=== PATIENT | female | born 1965 | race African-American/Black ===

== ENCOUNTER 2016-07-07 06:43 | Day surgery (SDC) | payer SELFPAY ==
[2016-07-03 13:21] VITALS: BMI 37.8
[2016-07-07] MEDS ORDERED: HEPARIN NA (PORCINE) 5,000 UNITS/ML 1ML VIAL ONE (07:09)
[2016-07-07] MEDS ORDERED: LIDOCAINE HCL 1%, 10 MG/ML (20ML VIAL) ONE (07:34)
[2016-07-07] MEDS ORDERED: EPINEPHrine/PF 1 MG/1 ML (1:1,000) AMPULE ONE (07:35)
[2016-07-07] MEDS ORDERED: BACITRACIN 30 GM TUBE TOPICAL OINTMENT ONE (07:36)
[2016-07-07] MEDS ORDERED: MIDAZOLAM HCL 2 MG/2 ML SINGLE DOSE VIAL ONE (07:37)
[2016-07-07] MEDS ORDERED: ONDANSETRON 4 MG/2 ML VIAL ONE (07:37)
[2016-07-07] MEDS ORDERED: DEXAMETHASONE SOD PHOSPHATE 4 MG/1 ML VIAL ONE ×2 (07:37→11:58)
[2016-07-07] MEDS ORDERED: PROPOFOL 20 ML ONE ×3 (07:38→13:33)
[2016-07-07] MEDS ORDERED: LIDOCAINE HCL/PF 2% SDV 5ML VIAL ONE (07:38)
[2016-07-07] MEDS ORDERED: ceFAZolin SODIUM 1 GM VIAL ONE ×2 (07:39→08:21)
[2016-07-07] MEDS ORDERED: ROCURONIUM BROMIDE 50 MG/5 ML VIAL ONE ×3 (07:39→12:27)
[2016-07-07] MEDS ORDERED: SODIUM CHLORIDE 0.9% P/F 10 ML VIAL IJ ONE (07:39)
[2016-07-07] MEDS ORDERED: ESMOLOL HCL 10 ML ONE (08:37)
[2016-07-07] MEDS ORDERED: LABETALOL HCL 5 MG/1 ML (100MG/20 ML VIAL) ONE (08:47)
[2016-07-07] MEDS ORDERED: ONDANSETRON 4 MG/2 ML VIAL IVPUSH PRN (12:05)
[2016-07-07] MEDS ORDERED: NEOSTIGMINE METHYLSULFATE 0.5 MG/ML - 10 ML MDV ONE (13:44)
[2016-07-07] MEDS ORDERED: GLYCOPYRROLATE 0.2 MG/1 ML VIAL ONE (13:44)
[2016-07-07] MEDS ORDERED: LACTATED RINGERS SOLUTION 1,000 ML IV SCH (14:15)
[2016-07-07] MEDS ORDERED: oxyCODONE HCL 5 MG TABLET PO PRN (14:15)
[2016-07-07] MEDS ORDERED: ONDANSETRON 4 MG/2 ML VIAL IVPB PRN (14:15)
[2016-07-07] MEDS: morphine CARPU-JECT 4 MG/1 ML DISP.SYRIN IVPUSH PRN ×3 (17:31→23:40)
[2016-07-07] MEDS ORDERED: morphine CARPU-JECT 2 MG/1 ML DISP.SYRIN IVPUSH STA (18:34)
[2016-07-08] MEDS: morphine CARPU-JECT 4 MG/1 ML DISP.SYRIN IVPUSH PRN (03:23)
[2016-07-08 06:04] VITALS: BP 128/75; PULSE 92; TEMP 98.1
[2016-07-08] MEDS ORDERED: LEVOTHYROXINE NA 125 MCG TABLET (FP) PO SCH (07:00)
[2016-07-08] MEDS ORDERED: HEPARIN NA (PORCINE) 5,000 UNITS/ML 1ML VIAL SQ SCH ×2 (07:00)
--- NOTE | 2016-07-08 09:51 | PN ---
Progress Note (short form) - Note Progress Note: POD 1 post abdominoplasty with liposuction. Pain controled with PO, ambulating , NATASHA's thin and functioning, VSS AF. Exam soft and appropriate. No collections. OK for discharge when ready.
--- NOTE | 2016-07-08 23:30 | OP ---
DATE OF OPERATION: 07/07/2016 TITLE OF PROCEDURE: Abdominoplasty with bilateral flank liposuction. PREOPERATIVE DIAGNOSIS: Cosmetic deformity of abdomen. POSTOPERATIVE DIAGNOSIS: Same. ATTENDING SURGEON: Sharif Angulo MD AIRPORT LOCATION MANAGER: None. ANESTHESIA: General endotracheal anesthesia. DESCRIPTION OF PROCEDURE: The patient was marked in the holding area, awake and aware of incisions and resulting scars. She was counseled on risks, benefits, and alternatives to the operation, understands and agrees to proceed. The patient is given 5,000 units of subcutaneous heparin preoperatively in the holding area. She is given CHRISTOPHER hose and SCDs in the holding area, brought to the operating room, placed in the supine position. All pressure points are carefully padded. Position is checked by surgical and anesthesia teams. The patient is given 2 g of IV Ancef preoperatively. She is prepped and draped in standard surgical fashion. Timeout was called. Patient, procedure, site and side was verified. An incision was made along the inferior border of the resection pattern in the infrapannicular crease. Dissection carried down to the level of the abdominal wall fascia. Dissection was then carried along the abdominal wall fascia to the level of the umbilicus. The umbilicus was then circumcised and developed down to the fascia on a fiber fatty stalk. It was from the abdominoplasty flap, and dissection of the abdominoplasty flap is performed to the level of xiphoid process in the midline and costal margins bilaterally. Hemostasis was meticulously achieved in the midline. Plication was then performed, first with a series of interrupted buried [id number] 1 Prolene sutures followed by running locking 1 Prolene suture. A line of each of these was performed both superior and inferior to the umbilicus. The umbilicus was given wide berth and is clearly well perfused. The abdominoplasty flap was then trimmed of its sub-Coty's fat uniformly. Hemostasis was meticulously achieved once again. Copious irrigation was performed. The patient was brought to a seated upright position at 30 degrees where the flap is transposed. Excess skin and fat is excised. The skin is then tailor tacked and a Star Trek pattern defect is made for the translocation of the umbilicus. A notch was removed from the 6 o'clock position of the umbilicus to accommodate the inferiorly based Star Trek flap of the inset defect. The umbilicus was brought through the defect. It was secured with a series of interrupted buried deep dermal 3-0 Monocryl suture followed by a combination of running and interrupted 5-0 nylon suture. Size 10 flat NATASHA drains are brought out through the lateral extents of the incisions. A central superior drain was brought out through a separate stab wound on the right side on each of the lateral extents of the incisions. Separate drain was brought out, which was laying in that side of the inferior portion of the wound. Drains were secured with 2-0 silk drain suture. At this point, the flanks were tumesced with wetting solution. A total of 1500 mL of wetting solution is infiltrated. The wetting solution is 1 L of normal saline with 20 mL of 1% lidocaine plain and an ampule of epinephrine. A full 25 minutes awaited for hemostatic effect of the wetting solution. While this was being done, the abdominoplasty flap was being closed with a series of interrupted buried superficial fascial, sub Coty's layer 2-0 Vicryl suture, followed by a running locking 3-0 Vicryl deep dermal layer. Liposuction was then performed with 5-mm cannula using a power-assisted technique. A total of 700 mL of lipoaspirate was yielded from the right flank and 550 mL of lipoaspirate was yielded from the left flank. Endpoint is smooth even contour. The final closure is performed of the skin with a running 3-0 Monocryl subcuticular suture, followed by several interrupted 5-0 nylon sutures along the incision. The incision is dressed with Steri-Strips. Bacitracin and Xeroform were placed at the umbilicus. The abdominal binder was applied with ABD gauze. The patient awoken from anesthesia in a flexed position, , transferred to her hospital bed in a flexed position. SHARIF ANGULO M.D. [id number]
--- NOTE | 2016-07-10 09:03 | PATH ---
Surgical Pathology Report Patient Name: STACY MORENO [facility]. Rec. #: [id number] /Age/Gender: 1965 (Age: 51) / F Account: [id number] Location: [facility] AMBULATORY Taken: 07/07/2016 Received: 07/07/2016 Reported: 07/10/2016 Physicians: Sharif Rodriguez Specimen(s) Received A: ABDOMINAL TISSUE AND SKIN RIGHT B: ABDOMINAL TISSUE AND SKIN LEFT Clinical History Cosmetic Final Diagnosis A. SKIN AND SUBCUTANEOUS TISSUE, RIGHT ABDOMEN, ABDOMINOPLASTY: UNREMARKABLE SKIN AND SUBCUTANEOUS ADIPOSE TISSUE (GROSS ONLY). B. SKIN AND SUBCUTANEOUS TISSUE, LEFT ABDOMEN, ABDOMINOPLASTY: UNREMARKABLE SKIN AND SUBCUTANEOUS ADIPOSE TISSUE (GROSS ONLY). Electronically Signed Jourdan Ulloa M.D. Gross Description A. Received in formalin labeled "right abdominal tissue and skin," is a 2056 g aggregate of 2 walker brown, irregular, unoriented portions of skin with underlying soft tissue measuring 21.5 x 5.0 x 3.0 cm and 32.0 x 18.5 x 7.0 cm. The epidermal surfaces are unremarkable. Sectioning reveals unremarkable yellow, lobulated adipose tissue. No lesions are identified. No sections are submitted, gross only. B. Received in formalin labeled "left abdominal tissue and skin 1902 g," are 2 walker-brown, irregular, unoriented portions of skin with underlying soft tissue measuring 11.0 x 1.8 x 1.5 cm and 29.0 x 20.0 x 7.0 cm. The epidermal surfaces are unremarkable. Sectioning reveals unremarkable yellow, lobulated adipose tissue. No lesions are identified. No sections are submitted, gross only. 07/09/201607/09/2016
== END 2016-07-08 12:08 | disposition home or self-care (01) ==
LOC: FASU 06:43 → FM/S 15:53 → FASU 07-08 12:08
PROVIDERS: ATTEND Plastic Surgery
PROC: 0J083ZZ Alteration of Abdomen Subcutaneous Tissue and Fascia, Percutaneous Approach (ICD-10-PCS; 2016-07-07)
PROC: 0J080ZZ Alteration of Abdomen Subcutaneous Tissue and Fascia, Open Approach (ICD-10-PCS; principal; 2016-07-07 08:51)
DX: Z41.1 Encounter for cosmetic surgery (principal); M95.8 Other specified acquired deformities of musculoskeletal system
CPT/HCPCS: 84703; 88300-TC; 94010; 94760; J1644

== ENCOUNTER 2017-04-13 07:08 | Day surgery (SDC) | payer OTHER ==
[2017-04-10 13:42] VITALS: BMI 34.3
[2017-04-13 07:46] LABS: EOS % 1.4 % (0-4.5); HEMOGLOBIN 13.8 GM/dL (10.7-15.3); LYMPH % 25.5 % (8-40); MCH 28.3 pg (25.7-33.7); MEAN CELL VOLUME 88.4 fl (80-96); MEAN PLT VOLUME 8.2 fl (7.5-11.1); MONO % 8.3 % (3.8-10.2); NEUT % 63.8 % (42.8-82.8); PLATELET COUNT 290 K/MM3 (134-434); RBC 4.87 M/mm3 (3.60-5.2); RDW 14.9 % (11.6-15.6); WHITE BLOOD COUNT 12.5 K/mm3 (4.0-10.0)
[2017-04-13 07:59] LABS: INR 1.06 (0.82-1.09)
[2017-04-13 08:04] VITALS: TEMP 98.1
[2017-04-13 13:01] VITALS: BP 127/88; PULSE 88
--- NOTE | 2017-04-15 16:15 | PATH ---
Cytology Non-Gynecological Report Patient Name: STACY MORENO [facility]. Rec. #: [id number] /Age/Gender: 1965 (Age: 52) / F Account: [id number] Location: RADIOLOGY Taken: 04/13/2017 Received: 04/13/2017 Reported: 04/15/2017 Physicians: Yo Ruby Specimen(s) Received ABDOMINAL FLUID LEFT LATERAL Clinical History Abscess Final Diagnosis ABDOMEN, LEFT LATERAL, ABSCESS, FOR CYTOLOGY: SATISFACTORY FOR EVALUATION. NO MALIGNANT CELLS IDENTIFIED. SCATTERED INFLAMMATORY CELLS COMPRISED OF MACROPHAGES, NEUTROPHILS AND LYMPHOCYTES IN A BACKGROUND OF CELLULAR DEBRIS. Comment: See concurrent cytology (C18-7). Electronically Signed Yas Whitlock M.D. Gross Description Approximately 50 cc of dark fluid received fixed in 50% alcohol. Two cytofunnels and one cellblock prepared.
--- NOTE | 2017-04-15 16:18 | PATH ---
Cytology Non-Gynecological Report Patient Name: STACY MORENO [facility]. Rec. #: [id number] /Age/Gender: 1965 (Age: 52) / F Account: [id number] Location: RADIOLOGY Taken: 04/13/2017 Received: 04/13/2017 Reported: 04/15/2017 Physicians: Yo Ruby Specimen(s) Received ABDOMINAL ABSCESS ANTERIOR Clinical History Abscess Final Diagnosis ABDOMEN, ANTERIOR, ABSCESS, FOR CYTOLOGY: SATISFACTORY FOR EVALUATION. NEGATIVE FOR MALIGNANT CELLS. SCATTERED INFLAMMATORY CELLS COMPRISED OF FEW MACROPHAGES, NEUTROPHILS, AND FEW LYMPHOCYTES IN A BACKGROUND OF CELLULAR DEBRIS. Comment: See concurrent cytology (C18-8). Electronically Signed Yas Whitlock M.D. Gross Description Approximately 50 cc of dark fluid received fixed in 50% alcohol. Two cytofunnels and one cellblock prepared.
== END 2017-04-13 13:01 | disposition home or self-care (01) ==
LOC: JRADIR 07:08
PROVIDERS: ATTEND Plastic Surgery
PROC: 0W9F30Z Drainage of Abdominal Wall with Drainage Device, Percutaneous Approach (ICD-10-PCS; principal; 2017-04-13)
DX: L02.211 Cutaneous abscess of abdominal wall (principal)
CPT/HCPCS: 10030; 36415; 76098-TC; 76942-TC; 85025; 85610; 87070; 87075; 87205; 87899; 88108; 88305-TC; C1729; C1769

== ENCOUNTER 2017-04-28 11:00 | Inpatient (IN) | payer OTHER ==
[2017-04-28] MEDS ORDERED: SODIUM CHLORIDE 1,000 ML IV ONE (11:02)
--- NOTE | 2017-04-28 12:06 | PDOC ---
History of Present Illness - General Chief Complaint: Lethargy Stated Complaint: lethargy,fever Time Seen by Provider: 04/28/17 11:02 History Source: Patient, Old Records Exam Limitations: No Limitations - History of Present Illness Initial Comments: 04/28/17 12:06 52-year-old female sent from surgeon's office for further imaging and admission. 52-year-old female with history of abdominoplasty in July 2016, found to have loculations on recent imaging that resulted in drain placement on , now sent from Dr. Rodriguez's office for further evaluation in the setting of persistent abdominal discomfort and intermittent fever like symptoms. No vomiting or diarrhea, the fluid in the drains has become more cloudy over the last week, was started on oral Augmentin about 5 days ago. No urinary complaints, no bloody diarrhea, no other travel. Past History - Past Medical History Allergies/Adverse Reactions: Allergies Allergy/AdvReac Type Severity Reaction Status Date / Time shellfish derived Allergy Severe passed out Verified 04/28/17 11:02 shrimp Allergy Severe passed out Verified 04/28/17 11:02 sesonal Allergy sneezing,watery Uncoded 04/13/17 08:14 eyes Home Medications: Ambulatory Orders Levothyroxine [Synthroid -] 125 mcg PO DAILY 07/03/16 Ibuprofen [Advil -] 200 mg PO TID 04/10/17 Ergocalciferol (Vitamin D2) [Vitamin D2] 50,000 unit PO WEEKLY 04/13/17 Amoxicillin/Potassium Clav [Augmentin 875-125 Tablet] 1 each PO BID 04/28/17 Anemia: No Asthma: No Cancer: No Cardiac Disorders: No CVA: No COPD: No CHF: No Dementia: No Diabetes: No GI Disorders: No Disorders: No HTN: No Hypercholesterolemia: No Liver Disease: No Seizures: No Thyroid Disease: Yes - Surgical History Abdominal Surgery: Yes (abdominoplasty) Appendectomy: No Cardiac Surgery: No Cholecystectomy: No Lung Surgery: No Neurologic Surgery: No Orthopedic Surgery: No - Suicide/Smoking/Psychosocial Hx Smoking History: Never smoked Have you smoked in the past 12 months: No Hx Alcohol Use: No Drug/Substance Use Hx: No Substance Use Type: None Hx Substance Use Treatment: No Review of Systems - Review of Systems Constitutional: Yes: Chills. No: Fever Respiratory: No: Cough, Shortness of Breath Cardiac (ROS): No: Chest Pain ABD/GI: Yes: See HPI, Nausea. No: Constipated, Diarrhea, Vomiting : No: Burning, Frequency All Other Systems: Reviewed and Negative *Physical Exam - Vital Signs Last Vital Signs Temp Pulse Resp BP Pulse Ox 99 F 93 H 18 123/81 100 04/28/17 11:05 04/28/17 11:05 04/28/17 11:05 04/28/17 11:05 04/28/17 11:05 - Physical Exam Comments: 04/28/17 12:08 Temp 99, O2 sat normal, heart rate 98 GENERAL: The patient is awake, alert, and fully oriented, in no acute distress. HEAD: Normal with no signs of trauma. EYES: PERRL, EOMI, sclera anicteric, conjunctiva clear with no pallor. ENT: oropharynx clear without exudates. Moist mucous membranes. NECK: Normal range of motion, supple without lymphadenopathy, JVD, or masses. LUNGS: Breath sounds equal, clear to auscultation bilaterally. No wheeze/ crackles. HEART: Regular rate and rhythm, normal S1 and S2 without murmur or rub. ABDOMEN: Soft/nondistended. BS wnl. Tender in the infraumbilical and left lower quadrant region in the areas of the prior drains, which were just DC'd at the office. The drains have a cloudy serosanguineous fluid which was cultured. No guarding or rebound. No hepatosplenomegaly. EXTREMITIES: Normal range of motion, no edema. 2+ distal pulses. No cords, erythema, or tenderness. NEUROLOGICAL: Cranial nerves II through XII grossly intact. Normal speech, normal gait. PSYCH: Normal mood, normal affect. SKIN: Drain sites otherwise c/d/i. Warm, Dry, no rashes or lesions noted. Heart Score/ECG Review #1 ECG reviewed & interpreted by me at: 12:01 General ECG Interpretation: Sinus Rhythm, Normal Rate (102), Normal Intervals ( qtc 450), No acute ischemic changes ED Treatment Course - LABORATORY CBC & Chemistry Diagram: 04/28/17 12:00 04/28/17 12:00 - RADIOLOGY Radiology Studies Ordered: Category Date Time Status ABDOMEN & PELVIS CT WITH CONTR [CT] Stat CT Scan 04/28/17 11:03 Ordered Medical Decision Making - Medical Decision Making 04/28/17 12:10 52-year-old female with history of abdominal surgery with subsequent loculations status post drain placement now with increasing infectious symptoms of cloudy fluid and chills presents with continuing symptoms despite oral antibiotics. Concern for infected fluid collection/abscess, hemodynamically stable. Labs, fluid cultures CT of the abdomen and pelvis As discussed with Dr. Rodriguez, likely admission for further evaluation 04/28/17 12:49 wbc 12.4, chem pending, ua clear. ctap pending. Accepted for inpatient med/surg by Dr. Arellano, signout given to DANIKA Soler. 04/28/17 13:12 chem wnl. ctap pending. *DC/Admit/Observation/Transfer Diagnosis at time of Disposition: Abdominal pain Qualifiers: Abdominal location: left lower quadrant Qualified Code(s): R10.32 - Left lower quadrant pain - Discharge Dispostion Condition at time of disposition: Fair Admit: Yes - Referrals - Patient Instructions - Post Discharge Activity
[2017-04-28 12:10] LABS: BASO % 0.8 % (0-2.0); EOS % 0.6 % (0-4.5); HEMATOCRIT 41.7 % (32.4-45.2); HEMOGLOBIN 13.5 GM/dl (10.7-15.3); LYMPH % 21.8 % (8-40); MCH 28.7 pg (25.7-33.7); MCHC 32.3 g/dl (32.0-36.0); MEAN CELL VOLUME 88.8 fl (80-96); MEAN PLT VOLUME 8.9 fl (7.5-11.1); MONO % 6.1 % (3.8-10.2); NEUT % 70.7 % (42.8-82.8); PLATELET COUNT 361 K/MM3 (134-434); RDW 14.2 % (11.6-15.6); WHITE BLOOD COUNT 12.4 K/mm3 (4.0-10.8)
[2017-04-28 12:14] LABS: HCG,QUALITATIVE URINE NEGATIVE
[2017-04-28 12:30] LABS: PH,URINE 5.5 (4.5-8); URINE APPEARANCE Clear; URINE BILIRUBIN Negative (NEGATIVE); URINE GLUCOSE (UA) Negative (NEGATIVE); URINE KETONE Negative (NEGATIVE); URINE NITRITE Negative (NEGATIVE); URINE PROTEIN Trace (NEGATIVE); URINE UROBILINOGEN 0.2 (0.2-1.0)
[2017-04-28 12:36] LABS: ALBUMIN 3.6 g/dl (3.5-5.0); ALK PHOS 53 U/L (32-92); ANION GAP 10 (8-16); BILIRUBIN,TOTAL 0.6 mg/dl (0.2-1.0); BLOOD UREA NITROGEN 10 mg/dl (7-18); CALCIUM 9.2 mg/dl (8.4-10.2); CHLORIDE 102 mmol/L (98-107); CO2 24 mmol/L (22-28); CREATININE 0.7 mg/dl (0.6-1.3); GLUCOSE,RANDOM 120 mg/dl (74-106); LIPASE 22 U/L (22-51); POTASSIUM 3.9 mmol/L (3.5-5.1); SGOT/AST 19 U/L (10-42); SGPT/ALT 18 U/L (10-40); SODIUM 136 mmol/L (136-145); TOT PROT 7.7 g/dl (6.4-8.3)
[2017-04-28 12:47] LABS: URINE BLOOD 2+ (NEGATIVE); URINE COLOR YELLOW
[2017-04-28 12:55] LABS: INR 1.25 (0.82-1.09); PROTHROMBIN TIME (PATIENT) 13.9 SEC (10.2-13.0)
--- NOTE | 2017-04-28 13:25 | HP ---
CHIEF COMPLAINT: Abdominal pain, sent from Dr. Rodriguez's office for further imaging and admission. Sx Dr. oRdriguez HISTORY OF PRESENT ILLNESS: This is a 52 year old female with a primary history significant for hypothyroidism, s/p abdominoplasty with liposuction in July [address] Rodriguez. On a recent out patient imaging found to have loculations that resulted in drain placement on 04/13/[address] Dent. Pt reports after the drain placed continue to have persistent abdominal distention /pain,developed chills, fever of 102,nausea and noted to have cloudy drainage with sedimentation in the drain. Pt was seen Dr. Rodriguez on the and started on Augmentin. Pt reports last night became very dizzy/ lightheaded with near syncopal episode,and also noted to have increased drainage/ bleeding from the drain, denies chest pain, sob, palpitations, or urinary symptoms. Pt seen by Dr. Rodriguez in his office today, removed the drains,sent fluid for culture, and referred to ER for further imaging and monitoring. ER course was notable for: (1)WBC 12.4, Tem 99 (2) EKG- ST 102 Recent Travel:No PAST MEDICAL HISTORY: Hypothyroidism PAST SURGICAL HISTORY: Abdominoplasty July2016. Social History: Smoking:No Alcohol:No Drugs: No Family History: Father- of colon Ca at age 85. Mother - Healthy Sister- DM Allergies shellfish derived Allergy (Severe, Verified 04/28/17 11:02) passed out shrimp Allergy (Severe, Verified 04/28/17 11:02) passed out sesonal Allergy (Uncoded 04/13/17 08:14) sneezing,watery eyes HOME MEDICATIONS: Home Medications Medication Instructions Recorded Levothyroxine [Synthroid -] 125 mcg PO DAILY 07/03/16 Ibuprofen [Advil -] 200 mg PO TID 04/10/17 Ergocalciferol (Vitamin D2) 50,000 unit PO WEEKLY 04/13/17 [Vitamin D2] Amoxicillin/Potassium Clav 1 each PO BID 04/28/17 [Augmentin 875-125 Tablet] REVIEW OF SYSTEMS CONSTITUTIONAL: + generalized weakness Absent: fever, chills, diaphoresis, malaise, loss of appetite, weight change HEENT: Absent: rhinorrhea, nasal congestion, throat pain, throat swelling, difficulty swallowing, mouth swelling, ear pain, eye pain, visual changes CARDIOVASCULAR: Absent: chest pain, syncope, palpitations, irregular heart rate, lightheadedness , peripheral edema RESPIRATORY: Absent: cough, shortness of breath, dyspnea with exertion, orthopnea, wheezing, stridor, hemoptysis GASTROINTESTINAL: + abdominal pain, +abdominal distention and nausea, Absent: vomiting, diarrhea, constipation, melena, hematochezia GENITOURINARY: Absent: dysuria, frequency, urgency, hesitancy, hematuria, flank pain, genital pain MUSCULOSKELETAL: Absent: myalgia, arthralgia, joint swelling, back pain, neck pain SKIN: Absent: rash, itching, pallor HEMATOLOGIC/IMMUNOLOGIC: Absent: easy bleeding, easy bruising, lymphadenopathy, frequent infections ENDOCRINE: Absent: unexplained weight gain, unexplained weight loss, heat intolerance, cold intolerance NEUROLOGIC: Absent: headache, focal weakness or paresthesias, dizziness, unsteady gait, seizure, mental status changes, bladder or bowel incontinence PSYCHIATRIC: Absent: anxiety, depression, suicidal or homicidal ideation, hallucinations. PHYSICAL EXAMINATION Vital Signs - 24 hr 04/28/17 11:05 Temperature 99 F Pulse Rate 93 H Respiratory 18 Rate Blood Pressure 123/81 O2 Sat by Pulse 100 Oximetry (%) GENERAL: Awake, alert, and fully oriented, in no acute distress. HEAD: Normal with no signs of trauma. EYES: Pupils equal, round and reactive to light, extraocular movements intact, sclera anicteric, conjunctiva clear. No lid lag. EARS, NOSE, THROAT: Ears normal, nares patent, oropharynx clear without exudates. Moist mucous membranes. NECK: Normal range of motion, supple without lymphadenopathy, JVD, or masses. LUNGS: Breath sounds equal, clear to auscultation bilaterally. No wheezes, and no crackles. No accessory muscle use. HEART: Regular rate and rhythm, normal S1 and S2 without murmur, rub or gallop. ABDOMEN: Diffuse tenderness, more to the umbilical area, no rebound tenderness or pulsatile mass, mildly distended, normoactive bowel sounds, no guarding, No hepatomegaly or splenomegaly. s/p drain, loer abdominal dsg intact. MUSCULOSKELETAL: Normal range of motion at all joints. No bony deformities or tenderness. No CVA tenderness. UPPER EXTREMITIES: 2+ pulses, warm, well-perfused. No cyanosis. No clubbing. No peripheral edema. LOWER EXTREMITIES: 2+ pulses, warm, well-perfused. No calf tenderness. No peripheral edema. NEUROLOGICAL: Cranial nerves II-XII intact. Normal speech. Normal gait. PSYCHIATRIC: Cooperative. Good eye contact. Appropriate mood and affect. SKIN: Warm, dry, normal turgor, no rashes or lesions noted, normal capillary refill. Laboratory Results - last 24 hr 04/28/17 04/28/17 04/28/17 12:00 12:00 12:00 WBC 12.4 H RBC 4.70 Hgb 13.5 Hct 41.7 MCV 88.8 MCH 28.7 MCHC 32.3 RDW 14.2 Plt Count 361 MPV 8.9 Neutrophils % 70.7 Lymphocytes % 21.8 Monocytes % 6.1 Eosinophils % 0.6 Basophils % 0.8 PT with INR 13.9 H INR 1.25 H Sodium Potassium Chloride Carbon Dioxide Anion Gap BUN Creatinine Creat Clearance w eGFR Random Glucose Calcium Total Bilirubin AST ALT Alkaline Phosphatase Total Protein Albumin Lipase Urine Color Yellow Urine Appearance Clear Urine pH 5.5 Ur Specific [place] 1.020 Urine Protein Trace Urine Glucose (UA) Negative Urine Ketones Negative Urine Blood 2+ H Urine Nitrite Negative Urine Bilirubin Negative Urine Urobilinogen 0.2 Urine HCG, Qual Negative 04/28/17 12:00 WBC RBC Hgb Hct MCV MCH MCHC RDW Plt Count MPV Neutrophils % Lymphocytes % Monocytes % Eosinophils % Basophils % PT with INR INR Sodium 136 Potassium 3.9 Chloride 102 Carbon Dioxide 24 Anion Gap 10 BUN 10 Creatinine 0.7 Creat Clearance w eGFR > 60 Random Glucose 120 H Calcium 9.2 Total Bilirubin 0.6 AST 19 ALT 18 Alkaline Phosphatase 53 Total Protein 7.7 Albumin 3.6 Lipase 22 Urine Color Urine Appearance Urine pH Ur Specific [place] Urine Protein Urine Glucose (UA) Urine Ketones Urine Blood Urine Nitrite Urine Bilirubin Urine Urobilinogen Urine HCG, Qual Blood culture done report pending Fluid culture done, report pending CT abdomen ordered ASSESSMENT/PLAN: This is a 52 year old female with primary history of hypothyroidism, s/p abdominoplasty with liposuction in July 2016, who was sent from Dr. Rodriguez's office with persistent abdominal pain, weakness. * Abdominal pain/fluid loculations - abdominal drain removed today 04/28/[address] Rodriguez - afebrile, wbc 12.4 - blood/fluid culture sent - reports to follow - will check lactic acid level, ESR, CRP -CT abdomen/ pelvis ordered , results to follow -ID and Sx consulted - will hold off on abx until CT report available * Hypothyroidism - will cont on Synthroid *F/E/N - will keep pt NPO until CT report available - IV hydration *VTE - will use SCDS, will hold Heparin until CT report available Visit type - Emergency Visit Emergency Visit: Yes Care time: The patient presented to the Emergency Department on the above date and was hospitalized for further evaluation of their emergent condition. - New Patient This patient is new to me today: Yes Date on this admission: 04/28/17 - Critical Care Critical Care patient: No
[2017-04-28] MEDS ORDERED: DEXTROSE 5%-0.45% SALINE 1,000 ML IV SCH (14:15)
[2017-04-28 16:22] VITALS: BMI 34.8
[2017-04-28] MEDS ORDERED: PIPERACILLIN/TAZOB 3.375 GM/50 ML PRE-DOCKED IVPB ONE (17:16)
[2017-04-28 17:29] LABS: URINE WBC 0-2 (0-5)
[2017-04-28 17:30] LABS: URINE BACTERIA FEW /hpf (NEGATIVE)
--- NOTE | 2017-04-28 19:37 | PN ---
Progress Note (short form) - Note Progress Note: Patient referred to ER this morning after continued malaise and pain despite drainage of subcutaneous fluid collection in abdomen. She had a fever last week which resolved with PO abx, but she appeared toxic and complained of lethargy and pain at drain sites. The drainage also appeared cloudier than last week. Drains are removed and fluid sent for culture. On admission, WBC 12, afebrile On my exam, there is no cellulitis, the abdominal exam is soft and benign with no fluctuance or point of tenderness. She subjectively feels better having started IV zosyn this morning. ID consult pending. repeat CT shows residual fluid collection in subcutaneus space. Plan will be for continued abx and surgical washout either tomorrow evening or morning.
[2017-04-29] MEDS ORDERED: LEVOTHYROXINE NA 125 MCG TABLET (FP) PO SCH (07:00)
--- NOTE | 2017-04-29 07:29 | PN ---
Physical Exam: SUBJECTIVE: Patient seen and examined, denies any pain, pending OR OBJECTIVE: patient is a 52 year old female with a primary history significant for hypothyroidism, s/p abdominoplasty with liposuction in July [address] Rodriguez. patient was admitted from the emergency department for emergent condition. Vital Signs Period Temp Pulse Resp BP Sys/Francisco Pulse Ox Last 24 Hr 98.2 F-99 F 80-94 16-18 117-144/67-96 97-100 GENERAL: The patient is awake, alert, and fully oriented, in no acute distress. HEAD: Normal with no signs of trauma. EYES: PERRL, extraocular movements intact, sclera anicteric, conjunctiva clear. No ptosis. ENT: Ears normal, nares patent, oropharynx clear without exudates, moist mucous membranes. NECK: Trachea midline, full range of motion, supple. LUNGS: Breath sounds equal, clear to auscultation bilaterally, no wheezes, no crackles, no accessory muscle use. HEART: Regular rate and rhythm, S1, S2 without murmur, rub or gallop. ABDOMEN: Soft, nontender, nondistended, normoactive bowel sounds, no guarding, no rebound, no hepatosplenomegaly, no masses. EXTREMITIES: 2+ pulses, warm, well-perfused, no edema. NEUROLOGICAL: Cranial nerves II through XII grossly intact. Normal speech, gait not observed. PSYCH: Normal mood, normal affect. SKIN: Warm, dry, normal turgor, no rashes or lesions noted Laboratory Results - last 24 hr 04/28/17 04/28/17 04/28/17 11:40 12:00 12:00 WBC 12.4 H RBC 4.70 Hgb 13.5 Hct 41.7 MCV 88.8 MCH 28.7 MCHC 32.3 RDW 14.2 Plt Count 361 MPV 8.9 Neutrophils % 70.7 Lymphocytes % 21.8 Monocytes % 6.1 Eosinophils % 0.6 Basophils % 0.8 ESR PT with INR 13.9 H INR 1.25 H Sodium Potassium Chloride Carbon Dioxide Anion Gap BUN Creatinine Creat Clearance w eGFR Random Glucose Lactic Acid Calcium Total Bilirubin AST ALT Alkaline Phosphatase C-Reactive Protein Total Protein Albumin Lipase Urine Color Urine Appearance Urine pH Ur Specific [place] Urine Protein Urine Glucose (UA) Urine Ketones Urine Blood Urine Nitrite Urine Bilirubin Urine Urobilinogen Urine RBC Urine WBC Urine Bacteria Urine HCG, Qual Blood Type A POSITIVE Antibody Screen 04/28/17 04/28/17 04/28/17 12:00 12:00 12:01 WBC RBC Hgb Hct MCV MCH MCHC RDW Plt Count MPV Neutrophils % Lymphocytes % Monocytes % Eosinophils % Basophils % ESR PT with INR INR Sodium 136 Potassium 3.9 Chloride 102 Carbon Dioxide 24 Anion Gap 10 BUN 10 Creatinine 0.7 Creat Clearance w eGFR > 60 Random Glucose 120 H Lactic Acid Calcium 9.2 Total Bilirubin 0.6 AST 19 ALT 18 Alkaline Phosphatase 53 C-Reactive Protein Total Protein 7.7 Albumin 3.6 Lipase 22 Urine Color Yellow Urine Appearance Clear Urine pH 5.5 Ur Specific [place] 1.020 Urine Protein Trace Urine Glucose (UA) Negative Urine Ketones Negative Urine Blood 2+ H Urine Nitrite Negative Urine Bilirubin Negative Urine Urobilinogen 0.2 Urine RBC 2-5 Urine WBC 0-2 Urine Bacteria Few Urine HCG, Qual Negative Blood Type A POSITIVE Antibody Screen Negative 04/28/17 04/28/17 04/28/17 15:15 15:15 15:15 WBC RBC Hgb Hct MCV MCH MCHC RDW Plt Count MPV Neutrophils % Lymphocytes % Monocytes % Eosinophils % Basophils % ESR 99 H PT with INR INR Sodium Potassium Chloride Carbon Dioxide Anion Gap BUN Creatinine Creat Clearance w eGFR Random Glucose Lactic Acid 1.4 Calcium Total Bilirubin AST ALT Alkaline Phosphatase C-Reactive Protein 7.1 H Total Protein Albumin Lipase Urine Color Urine Appearance Urine pH Ur Specific [place] Urine Protein Urine Glucose (UA) Urine Ketones Urine Blood Urine Nitrite Urine Bilirubin Urine Urobilinogen Urine RBC Urine WBC Urine Bacteria Urine HCG, Qual Blood Type Antibody Screen Active Medications Generic Name Dose Route Start Last Admin Trade Name Freq PRN Reason Stop Dose Admin Dextrose/Sodium Chloride 1,000 mls @ 75 mls/hr 04/28/17 14:15 04/28/17 15:05 D5-1/2ns - IV 75 mls/hr ASDIR DENISE Administration Metronidazole 500 mg in 100 mls @ 100 mls/hr 04/28/17 17:30 04/29/17 02:42 Flagyl 500mg Premixed Ivpb - IVPB 100 mls/hr Q6H-IV DENISE Administration Levothyroxine Sodium 125 mcg 04/29/17 07:00 04/29/17 06:20 Synthroid - PO 125 mcg DAILY@0700 DENISE Administration Microbiology 04/28/17 12:00 Body Fluid - Other Body Fluid Culture - Preliminary Group D Strep Or Entero Coccus Staphylococcus Species Pending Organism 04/28/17 12:00 Drainage Body Fluid Culture - Preliminary Group D Strep Or Entero Coccus Staphylococcus Species 04/28/17 12:00 Blood - Peripheral Venous Blood Culture - Preliminary NO GROWTH OBTAINED AFTER 24 HOURS, INCUBATION TO CONTINUE FOR 4 DAYS. 04/28/17 12:00 Blood - Peripheral Venous Blood Culture - Preliminary NO GROWTH OBTAINED AFTER 24 HOURS, INCUBATION TO CONTINUE FOR [address] of abd/pelvis: rim enhancing collection in the anterior abd wall extending over the left iliac bone. ASSESSMENT/PLAN: 1) Abdominal pain/fluid loculations s/p abdominoplasty 07/21 - abdominal drain removed 04/28/[address] Rodriguez - afebrile, wbc 12.4 - blood/fluid culture prelim group d strep, zosyn (04/28 -) received vanc today, reports heart racing, nausea, (adverse reaction) soon after, vanc discontinued -ID (Nelson) and surger (Michael) consulted 2) endo * Hypothyroidism - cont Synthroid *F/E/N - will keep pt NPO until CT report available - IV hydration *VTE - will use SCDS, will hold Heparin pending or Visit type - Emergency Visit Emergency Visit: Yes ED Registration Date: 04/28/17 Care time: The patient presented to the Emergency Department on the above date and was hospitalized for further evaluation of their emergent condition. - New Patient This patient is new to me today: Yes Date on this admission: 04/29/17 - Critical Care Critical Care patient: No - Discharge Referral Referred to [facility] Med P.C.: No
--- NOTE | 2017-04-29 09:11 | PN ---
Progress Note (short form) - Note Progress Note: ID Consult dictated Possible infected seroma Possible sepsis secondary to infected seroma S/P liposuction/ abdominoplasty 07/21 Pending c/s empiric zosyn/ vancomycin Fluid c/s for AFB/ Fungal
[2017-04-29] MEDS ORDERED: VANCOMYCIN 1 GRAM (PRE-DOCKED) 1,000 MG/250 ML BAG IVPB SCH (09:30)
[2017-04-29] MEDS ORDERED: PIPERACILLIN/TAZOB 3.375 GM 3.375 GM/50 ML BAG IVPB SCH (10:00)
--- NOTE | 2017-04-29 10:13 | CONS ---
DATE OF CONSULTATION: DATE OF DICTATION: 04/29/2017 HISTORY OF PRESENT ILLNESS: The patient is a 52-year-old female who is evaluated for possible infected seroma. The patient underwent an elective liposuction and abdominoplasty in July of 2016. She reports that postoperatively she had developed some abdominal distension. Around , she had worsening distension and discomfort. She later saw her primary care physician in March and was advised to follow up with her plastic surgeon. She was evaluated and found on CT scan dated March 27, 2017 was an abdominal fluid collection consistent with seroma. It was a large subcutaneous fluid collection involving the anterior abdominal wall extending to the left flank. The patient developed worsening discomfort and distension. She was referred to interventional radiology where 2 percutaneous drains were placed on April 13, 2017. Fluid cultures at that time were negative. Patient had not received antibiotic therapy prior to the cultures. She reported that the fluid became more cloudy, and she had developed subjective fever. She was seen in followup by Plastic Surgery and prescribed Augmentin on April 23, 2017. She now presents with increased abdominal discomfort, fever at home to 102, dizziness and near syncope. She denied any nausea, vomiting, or diarrhea. She was seen in followup [facility] 2017. The drains were removed. She was referred to the hospital for further evaluation. The followup CT scan was performed on admission and showed that the anterior abdominal collection had decreased in size since March of 2017. At the present time, she is awake and alert. She complains of some abdominal discomfort, primarily below the umbilicus on both sides of the abdomen. She has been afebrile in the hospital with a slightly elevated white blood cell count. Cultures were obtained. She was empirically started on antibiotics. PAST MEDICAL HISTORY: As above. Also positive for hypothyroidism. ALLERGIES: No known allergies. MEDICATIONS: Synthroid, Advil, Augmentin. SOCIAL HISTORY: She lives at home with her significant other. She is a nonsmoker, nondrinker. SYSTEMS REVIEW: Neurologic: No loss of consciousness, seizure activity, or focal weakness. Cardiac: Negative for chest pain or palpitations. Respiratory: Negative for cough or sputum production. Gastrointestinal: As per HPI. Genitourinary: Negative for urinary tract infection. LABORATORY DATA: White count 12.4, hematocrit 41.7, platelet count 361. Sedimentation rate 99, C-reactive protein 7.1. BUN 10, creatinine 0.7. Liver enzymes normal. Urinalysis 0-2 white cells. Cultures of the abdominal fluid and blood are pending. PHYSICAL EXAMINATION: General: She is awake and alert. She is in no acute distress. She is not acutely toxic-appearing. Vital signs: Temperature 98.2, blood pressure 117/71, pulse 80 and regular, respirations 18 per minute. HEENT: Sclerae anicteric. Heart: Heart sounds S1, S2. Lungs: Clear bilaterally. No rhonchi, rales, or wheezing. Abdomen: Positive bowel sounds. There is a low transverse healed surgical scar present. There is no erythema noted. There are 2 small drain exit sites which do not express any fluid. There is no erythema present. There is abdominal tenderness present below the umbilicus in both lower quadrants, left greater than right. Extremities: Negative for edema. IMPRESSION: 1. Possible infected seroma. 2. Possible sepsis secondary to infected seroma. 3. Postoperative liposuction and abdominoplasty. Await culture results. Patient tentatively is for washout procedure. Would send additional cultures for AFB and fungal organisms. Further recommendations pending culture results. Will follow. Thank you for the kind referral. WILL THOMSON M.D. [id number]
--- NOTE | 2017-04-29 14:26 | EKG ---
Test Reason : Blood Pressure : / mmHG Vent. Rate : 102 BPM Atrial Rate : 102 BPM P-R Int : 136 ms QRS Dur : 088 ms QT Int : 346 ms P-R-T Axes : 060 008 034 degrees QTc Int : 450 ms SINUS TACHYCARDIA LEFT VENTRICULAR HYPERTROPHY (per Naif criteria) ABNORMAL ECG NO PREVIOUS ECGS AVAILABLE Confirmed by HUGO FRANCIS MD ([id number]) on 04/29/2017 2:26:15 PM Referred By: ASHA PARKER Confirmed By:HUGO FRANCIS MD
[2017-04-29] MEDS ORDERED: fentaNYL CITRATE 250 MCG/5 ML VIAL ONE (19:10)
[2017-04-29] MEDS ORDERED: MIDAZOLAM HCL 2 MG/2 ML SINGLE DOSE VIAL ONE (19:10)
[2017-04-29] MEDS ORDERED: PROPOFOL 20 ML ONE ×3 (19:10→19:40)
[2017-04-29] MEDS ORDERED: LIDOCAINE HCL/PF 2% SDV 5ML VIAL ONE (19:12)
[2017-04-29] MEDS ORDERED: BUPIVACAINE HCL/PF 0.25% (2.5MG/ML) 10 ML VIAL ONE (19:13)
[2017-04-29] MEDS ORDERED: DEXAMETHASONE SOD PHOSPHATE 4 MG/1 ML VIAL ONE (19:27)
[2017-04-29] MEDS ORDERED: METOPROLOL TARTRATE 5 MG/5 ML VIAL ONE (20:03)
[2017-04-29] MEDS ORDERED: HYDROmorphone HCL CARPU-JECT 2 MG/1 ML DISP.SYRIN ONE (20:09)
[2017-04-29] MEDS ORDERED: PIPERACIL/TAZOB 3.375 GM 3.375 GM/50 ML PREMIX IVPB ONE (20:10)
[2017-04-29] MEDS ORDERED: SUCCINYLCHOLINE CHLORIDE 200 MG/10 ML VIAL ONE (20:11)
[2017-04-29] MEDS ORDERED: PIPERACILLIN/TAZOB 3.375 GM 3.375 GM in DEXTROSE 5%-WATER - 100 ML IVPB ONE (20:15)
[2017-04-29] MEDS ORDERED: ROCURONIUM BROMIDE 50 MG/5 ML VIAL ONE (20:42)
[2017-04-29] MEDS ORDERED: GLYCOPYRROLATE 0.2 MG/1 ML VIAL ONE (21:41)
[2017-04-29] MEDS ORDERED: NEOSTIGMINE METHYLSULFATE 0.5 MG/ML - 10 ML MDV ONE (21:41)
[2017-04-29] MEDS ORDERED: HYDROmorphone *PCA* 10MG/50ML DISP.SYRIN PCA ONE (22:43)
--- NOTE | 2017-04-29 22:44 | OP ---
Operative Note - Note: Operative Date: 04/29/17 Pre-Operative Diagnosis: Abdominal mass Operation: Abdominal wall exploration, washout and removal of subcutaneous mass Findings: fibrotic fluid collection abdominal wall Post-Operative Diagnosis: Same as Pre-op Surgeon: Sharif Rodriguez Anesthesia: General Specimens Removed: abdominal mass, contents, and cultures
[2017-04-29] MEDS ORDERED: HYDROmorphone *PCA* 10MG/50ML DISP.SYRIN PCA SCH (23:45)
[2017-04-29] MEDS ORDERED: ELECTROLYTE-148 SOLN 1,000 ML IV SCH (23:45)
[2017-04-29] MEDS ORDERED: ONDANSETRON 4 MG/2 ML VIAL IVPUSH PRN (23:47)
[2017-04-29] MEDS ORDERED: oxyCODONE HCL 5 MG TABLET PO PRN (23:57)
[2017-04-30] MEDS: PIPERACILLIN/TAZOB 3.375 GM 3.375 GM in DEXTROSE 5%-WATER - 100 ML IVPB SCH ×2 (02:46→12:35)
[2017-04-30] MEDS: LACTATED RINGERS SOLUTION 1,000 ML IV SCH ×2 (05:00→22:16)
[2017-04-30] MEDS: LEVOTHYROXINE NA 125 MCG TABLET (FP) PO SCH (06:02)
--- NOTE | 2017-04-30 08:55 | PN ---
Physical Exam: SUBJECTIVE: Patient seen and examined. Abdominal pain much improved following surgical washout yesterday. OBJECTIVE: Vital Signs Period Temp Pulse Resp BP Sys/Francisco Pulse Ox Last 24 Hr 97.9 F-98.7 F 89-107 14-20 128-156/66-93 94-100 GENERAL: The patient is awake, alert, and fully oriented, in no acute distress. LUNGS: Breath sounds equal, clear to auscultation bilaterally, no wheezes, no crackles, no accessory muscle use. HEART: Regular rate and rhythm, S1, S2 without murmur, rub or gallop. ABDOMEN: Long horizontal suprapubic incision closed with steri strips clean, dry , edges well-approximated, no erythema, no warmth; two NATASHA drains, far lateral left and far lateral right with serosanguinous fluid ~25cc's each EXTREMITIES: 2+ pulses, warm, well-perfused, no edema. NEUROLOGICAL: Cranial nerves II through XII grossly intact. Normal speech, gait not observed. 04/30/17 04/30/17 09:16 09:16 WBC 14.7 H RBC 4.06 Hgb 11.7 D Hct 35.9 D MCV 88.3 MCH 28.7 MCHC 32.5 RDW 14.8 Plt Count 324 MPV 8.2 Neutrophils % 84.5 H D Lymphocytes % 9.0 D Monocytes % 6.3 Eosinophils % 0.0 D Basophils % 0.2 ESR PT with INR INR Sodium 138 Potassium 4.7 Chloride 103 Carbon Dioxide 29 Anion Gap 6 L BUN 8 Creatinine 0.6 Creat Clearance w eGFR > 60 Random Glucose 122 H Lactic Acid Calcium 8.2 L Magnesium 2.1 Total Bilirubin 0.4 AST 10 L ALT 17 Alkaline Phosphatase 50 C-Reactive Protein Total Protein 6.8 Albumin 2.7 L Lipase Urine Color Urine Appearance Urine pH Ur Specific [place] Urine Protein Urine Glucose (UA) Urine Ketones Urine Blood Urine Nitrite Urine Bilirubin Urine Urobilinogen Urine RBC Urine WBC Urine Bacteria Urine HCG, Qual Blood Type Antibody Screen Active Medications Generic Name Dose Route Start Last Admin Trade Name Freq PRN Reason Stop Dose Admin Acetaminophen 650 mg 04/29/17 23:57 Tylenol - PO Q4H PRN PAIN LEVEL 6-10 Hydromorphone HCl 10 mg 04/29/17 23:45 Dilaudid Casino Cage Cashier - COMPOUND FILLER 05/06/17 23:49 COMPOUND FILLER DENISE Protocol Piperacillin Sod/Tazobactam 100 mls @ 200 mls/hr 04/30/17 02:00 04/30/17 02: 46 Sod 3.375 gm/ Dextrose IVPB 200 mls/hr Q8H-IV DENISE Administration Protocol Lactated Ringer's 1,000 mls @ 125 mls/hr 04/30/17 00:15 04/30/17 05:00 Lactated Ringers Solution IV Not Given ASDIR DENISE Levothyroxine Sodium 125 mcg 04/30/17 07:00 04/30/17 06:02 Synthroid - PO 125 mcg DAILY@0700 DENISE Administration Ondansetron HCl 4 mg 04/29/17 23:47 Zofran Injection IVPUSH Q6H PRN NAUSEA AND/OR VOMITING Oxycodone HCl 10 mg 04/29/17 23:57 Roxicodone - PO Q4H PRN PAIN LEVEL 6-10 ASSESSMENT/PLAN 52 year-old woman s/p abdominoplasty with liposuction 07/2016 complicated by loculations and drain placement 04/13/17 by IR. Further complicated with pain, fever, started on augmentin 04/23/17, followed by worsening pain, increased drainage, and bleeding. Now s/p abdominal wall exploration, washout, and removal of subq fibrous mass, POD #1. Abdominal infection --s/p washout --afebrile, WBC 14.7 --continue Zosyn, metronidazole Hypothyroidism --continue levothyroxine DVT prophylaxis: lovenox Physical therapy Dispo: continues to require inpatient care. Full code. Visit type - Emergency Visit Emergency Visit: Yes ED Registration Date: 04/28/17 Care time: The patient presented to the Emergency Department on the above date and was hospitalized for further evaluation of their emergent condition. - New Patient This patient is new to me today: Yes Date on this admission: 05/01/17 - Critical Care Critical Care patient: No
--- NOTE | 2017-04-30 09:42 | PN ---
Progress Note (short form) - Note Progress Note: POD 1 post washout and drainage of abdominal collection. ER wound cultures with multiple organisms Afebrile, NATASHA's thin non-purulent Awaiting WBC. ID to make recommendations on home abx. Anticipate discharge tomorrow.
[2017-04-30 10:00] LABS: BASO % 0.2 % (0-2.0); HEMATOCRIT 35.9 % (32.4-45.2); HEMOGLOBIN 11.7 GM/dL (10.7-15.3); MCH 28.7 pg (25.7-33.7); MCHC 32.5 g/dl (32.0-36.0); MEAN CELL VOLUME 88.3 fl (80-96); MEAN PLT VOLUME 8.2 fl (7.5-11.1); MONO % 6.3 % (3.8-10.2); NEUT % 84.5 % (42.8-82.8); PLATELET COUNT 324 K/MM3 (134-434); RBC 4.06 M/mm3 (3.60-5.2); RDW 14.8 % (11.6-15.6); WHITE BLOOD COUNT 14.7 K/mm3 (4.0-10.0)
[2017-04-30 10:27] LABS: ALBUMIN 2.7 g/dl (3.4-5.0); ANION GAP 6 (8-16); BLOOD UREA NITROGEN 8 mg/dL (7-18); CALCIUM 8.2 mg/dL (8.5-10.1); CHLORIDE 103 mmol/L (98-107); CO2 29 mmol/L (21-32); CREATININE 0.6 mg/dL (0.55-1.02); GLUCOSE,RANDOM 122 mg/dL (74-106); MAGNESIUM 2.1 mg/dL (1.8-2.4); POTASSIUM 4.7 mmol/L (3.5-5.1); SGOT/AST 10 U/L (15-37); SGPT/ALT 17 U/L (12-78); SODIUM 138 mmol/L (136-145)
[2017-04-30 10:29] LABS: ALK PHOS 50 U/L (45-117); BILIRUBIN,TOTAL 0.4 mg/dL (0.2-1.0); TOT PROT 6.8 g/dl (6.4-8.2)
--- NOTE | 2017-04-30 13:13 | OP ---
DATE OF OPERATION: 04/29/2017 TITLE OF PROCEDURE: Exploration of abdominal wall with washout, removal of fluid-filled mass with its contents, advancement of abdominal wall flap, closure of defect. Please note that the abdominal wall flap is over 100 sq cm and the subcutaneous mass that is removed is over 40 sq cm. PREOPERATIVE DIAGNOSIS: Fluid-filled abdominal wall mass by CT scan. POSTOPERATIVE DIAGNOSIS: Fluid-filled abdominal wall mass by CT scan. ATTENDING SURGEON: Suha Angulo MD CARGO SURVEYOR: There were no assistants. ANESTHESIA: General endotracheal anesthesia. DESCRIPTION OF PROCEDURE: The patient was counseled in the holding of all risks, benefits, and alternatives to the procedure, understands, and agrees to proceed. The patient was brought to the operating room, placed in a supine position. Sequential compression stockings were applied. Position was carefully checked by surgical and anesthesia teams. Anesthesia was given. She was prepped and draped in standard surgical fashion. A time-out was called. Patient, procedure, side, sites were verified. At this point, the existing transverse incision on the abdomen was reincised, and dissection was carried down to the level of the abdominal wall fascia. Dissection of the abdominal wall fascia was very difficult given the phlegmon mass that was there. There was significant edema and fibrotic tissue. It was necessary to dissect wide of the lesion in order to identify uninvolved abdominal wall fascia. Once this was done, dissection was then continued along the uninvolved abdominal wall fascia until the area of fibrosis was identified. Correlating with the location of the mass on the CT scan, the mass was then dissected entirely infraumbilically, and the mass was then entered. Once inside the mass, the fluid was sent for culture and sensitivity, acid-fast bacilli, mycobacteria, and fungal stain. Additionally, the contents of the mass were sent for pathology. The mass itself was then resected. The thick-walled cystic mass extended from the right side of the midline of the umbilicus all the way to the posterior left flank. The anterior portion of this was excised Bovie cautery in a piecemeal fashion. The posterior surface was generously curetted until all of its elements were able to be removed off of the abdominal wall fascia. Hemostasis was then meticulously achieved thoroughly throughout the abdomen. The abdomen was then pulse lavaged with 3 L of normal saline and 50,000 units of bacitracin. Hemostasis was once again meticulously achieved, and the wound irrigated with saline. The abdominal wall flap that had been elevated was then mobilized inferiorly. This was consisting of the entire width of the abdomen. Once it was mobilized, excess skin and fat was able to be trimmed and the flap advanced for closure. The advancement flap was then inset first with a series of interrupted Scarpas layer, 0 Vicryl suture within the Scarpas layer fascia. Along the abdominal wall were two 15 round Danish drains brought up through either into the incision, one drain was at the superior recess of the wound, and the other drain was on the inferior recess of the wound. The drains were secured with 3-0 silk suture. The skin was then closed with a series of interrupted buried deep dermal 3-0 Monocryl sutures followed by a running subcuticular 3-0 Monocryl suture. The wound was dressed with Steri-Strips, 4 x 4 gauze, ABD gauze, and an abdominal binder. Drains were placed to bulb suction. The patient was awoken from anesthesia having tolerated the procedure well. SUHA ANGULO M.D. [id number]
--- NOTE | 2017-04-30 13:50 | PN ---
Progress Note (short form) - Note Progress Note: POD #1 - s/p excision of abdominal mass/washout of abdominal fluid collection under GA. VSS. Pt. doing well, resting comfortably in bed. No complaints. Good pain control on BINMAN. No apparent anesthetic complications noted. Will continue BINMAN for now.
--- NOTE | 2017-04-30 13:54 | PN ---
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 Wound c/s mixed organisms - Current Medication List Current Medications: Active Medications Acetaminophen (Tylenol -) 650 mg PO Q4H PRN PRN Reason: PAIN LEVEL 6-10 Hydromorphone HCl (Dilaudid Hr Business Partner Consultant -) 10 mg SIDING MECHANIC SIDING MECHANIC DENISE PRN Reason: Protocol Stop: 05/06/17 23:49 Piperacillin Sod/Tazobactam (Sod 3.375 gm/ Dextrose) 100 mls @ 200 mls/hr IVPB Q8H-IV DENISE PRN Reason: Protocol Last Admin: 04/30/17 12:35 Dose: 200 mls/hr Lactated Ringer's (Lactated Ringers Solution) 1,000 mls @ 125 mls/hr IV ASDIR [facility] Last Admin: 04/30/17 05:00 Dose: Not Given Levothyroxine Sodium (Synthroid -) 125 mcg PO DAILY@0700 [facility] Last Admin: 04/30/17 06:02 Dose: 125 mcg Ondansetron HCl (Zofran Injection) 4 mg IVPUSH Q6H PRN PRN Reason: NAUSEA AND/OR VOMITING Oxycodone HCl (Roxicodone -) 10 mg PO Q4H PRN PRN Reason: PAIN LEVEL 6-10 - Objective Vital Signs: Vital Signs Temperature 98.0 F 04/30/17 08:00 Pulse Rate 84 04/30/17 08:00 Respiratory Rate 20 04/30/17 08:00 Blood Pressure 141/72 04/30/17 08:00 O2 Sat by Pulse Oximetry (%) 97 04/30/17 08:00 Constitutional: Yes: No Distress Eyes: Yes: Conjunctiva Clear Cardiovascular: Yes: Regular Rate and Rhythm, S1, S2 Respiratory: Yes: CTA Bilaterally Gastrointestinal: Yes: Normal Bowel Sounds, Soft, Tenderness, Other (mild incisional tenderness. serosanguinous fluid in NATASHA drains) Edema: No Labs: CBC, BMP 04/30/17 09:16 04/30/17 09:16 INR, PTT INR 1.25 (0.82-1.09) H 04/28/17 12:00 Assessment/Plan POD #1 washout and drainage of abdominoplasty wound Await final c/s Continue empiric zosyn
[2017-04-30] MEDS ORDERED: PT OWN MED DRAWER 7, Y5N ONE (18:42)
[2017-04-30] MEDS: PIPERACILLIN/TAZOB 3.375 GM 50 ML IVPB SCH (18:44)
[2017-05-01] MEDS ORDERED: PT OWN MED DRAWER 7, Y5N ONE (02:08)
[2017-05-01] MEDS: PIPERACILLIN/TAZOB 3.375 GM 50 ML IVPB SCH ×2 (02:11→11:26)
[2017-05-01] MEDS: LEVOTHYROXINE NA 125 MCG TABLET (FP) PO SCH (06:10)
[2017-05-01] MEDS: LACTATED RINGERS SOLUTION 1,000 ML IV SCH ×3 (06:10→23:29)
--- NOTE | 2017-05-01 08:04 | PN ---
Progress Note (short form) - Note Progress Note: Exam much improved Afebrile Drainge serous and minimal. Drains are functioning Ambulating No evidence of infection OR cultures are negative to date Cultures from ER have a high liklihood of contamination given that they were sent from drain bulbs that had been in use for several weeks. Given clinical picture, I am ok with patient to be discharged by Hospitalist today with PO ABX by ID recommendation as long as the WBC lowers. Otherwise, i would obs for another day and plan for discharge tomorrow. No further surgical intervention needd. She can follow up with me in one week.
[2017-05-01 08:12] LABS: ALBUMIN 2.7 g/dl (3.4-5.0); ANION GAP 9 (8-16); BILIRUBIN,TOTAL 0.4 mg/dL (0.2-1.0); BLOOD UREA NITROGEN 7 mg/dL (7-18); CALCIUM 7.9 mg/dL (8.5-10.1); CHLORIDE 102 mmol/L (98-107); CO2 28 mmol/L (21-32); CREATININE 0.8 mg/dL (0.55-1.02); GLUCOSE,RANDOM 88 mg/dL (74-106); POTASSIUM 3.6 mmol/L (3.5-5.1); SGOT/AST 9 U/L (15-37); SGPT/ALT 15 U/L (12-78); SODIUM 139 mmol/L (136-145); TOT PROT 6.4 g/dl (6.4-8.2)
[2017-05-01 08:13] LABS: ALK PHOS 47 U/L (45-117)
[2017-05-01 08:14] LABS: BASO % 0.7 % (0-2.0); EOS % 0.8 % (0-4.5); HEMATOCRIT 33.5 % (32.4-45.2); HEMOGLOBIN 10.8 GM/dL (10.7-15.3); LYMPH % 24.3 % (8-40); MCH 28.4 pg (25.7-33.7); MCHC 32.2 g/dl (32.0-36.0); MEAN CELL VOLUME 88.1 fl (80-96); MEAN PLT VOLUME 8.3 fl (7.5-11.1); MONO % 8.9 % (3.8-10.2); NEUT % 65.3 % (42.8-82.8); PLATELET COUNT 319 K/MM3 (134-434); RDW 14.4 % (11.6-15.6); WHITE BLOOD COUNT 15.4 K/mm3 (4.0-10.0)
[2017-05-01] MEDS ORDERED: ACETAMINOPHEN 325 MG TABLET (FP) PO PRN (09:06)
--- NOTE | 2017-05-01 09:17 | PN ---
Progress Note (short form) - Note Progress Note: WBC increased to 15.4 today. Though clinically improving, will have to observe and have evaluated by ID. Cannot discharge today.
--- NOTE | 2017-05-01 10:46 | PN ---
Progress Note, Physician Chief Complaint: S/p Excision of abdominal mass with washout of abdominal fluid under GA with post-op SNOW PLOW TRACTOR OPERATOR. History of Present Illness: POD#2 s/p excision of abdominal mass and washout of abdominal fluid. - Current Medication List Current Medications: Active Medications Acetaminophen (Tylenol -) 650 mg PO Q4H PRN PRN Reason: PAIN LEVEL 6-10 Acetaminophen (Tylenol -) 650 mg PO Q4H PRN Stop: 05/04/17 09:05 Enoxaparin Sodium (Lovenox -) 40 mg SQ DAILY [facility] Lactated Ringer's (Lactated Ringers Solution) 1,000 mls @ 125 mls/hr IV ASDIR [facility] Last Admin: 05/01/17 06:10 Dose: 125 mls/hr Piperacillin/Tazobactam/Dextrose (Zosyn 3.375gm Ivpb (Premix)) 50 mls @ 100 mls /hr IVPB Q8H-IV DENISE PRN Reason: Protocol Last Admin: 05/01/17 02:11 Dose: 100 mls/hr Levothyroxine Sodium (Synthroid -) 125 mcg PO DAILY@0700 [facility] Last Admin: 05/01/17 06:10 Dose: 125 mcg Ondansetron HCl (Zofran Injection) 4 mg IVPUSH Q6H PRN PRN Reason: NAUSEA AND/OR VOMITING Oxycodone HCl (Roxicodone -) 10 mg PO Q4H PRN - Objective Vital Signs: Vital Signs Temperature 98.0 F 05/01/17 05:39 Pulse Rate 76 05/01/17 05:39 Respiratory Rate 20 05/01/17 05:39 Blood Pressure 103/76 05/01/17 05:39 O2 Sat by Pulse Oximetry (%) 97 04/30/17 21:00 Constitutional: Yes: Well Nourished, No Distress, Calm (pt. sitting comfortably on edge of bed. She admits to pain but has had good relief with SNOW PLOW TRACTOR OPERATOR. She is on liquid diet and able to swallow pills.) Labs: CBC, BMP 05/01/17 06:30 05/01/17 06:30 INR, PTT INR 1.25 (0.82-1.09) H 04/28/17 12:00 Assessment/Plan Will d/c SNOW PLOW TRACTOR OPERATOR and start PO oxycodone which has already been ordered by Dr. Rodriguez. Have d/w pt. and RN who are both amenable to this plan. Continue further management as per primary team, but welcome to re-consult anesthesia if further pain issues. Thank you.
--- NOTE | 2017-05-01 10:52 | PN ---
Physical Exam: SUBJECTIVE: Patient seen and examined OBJECTIVE: Vital Signs Period Temp Pulse Resp BP Sys/Francisco Pulse Ox Last 24 Hr 97.6 F-98.5 F 76-89 20-22 103-143/74-91 97 GENERAL: The patient is awake, alert, and fully oriented, in no acute distress. HEENT: Sore throat. +purulent rhinorrhea. Oropharynx clear without erythema or exudates. LUNGS: Breath sounds equal, clear to auscultation bilaterally, no wheezes, no crackles, no accessory muscle use. HEART: RRR, S1, S2. No m/r/g. ABDOMEN: Long horizontal suprapubic incision closed with steri strips clean, dry , edges well-approximated, no erythema, no warmth; two NATASHA drains, far lateral left and far lateral right with serosanguinous fluid with ~15cc's each EXTREMITIES: 2+ pulses, warm, well-perfused, no edema. NEUROLOGICAL: Cranial nerves II through XII grossly intact. Normal speech, gait steady. Laboratory Results - last 24 hr 05/01/17 05/01/17 06:30 06:30 WBC 15.4 H RBC 3.80 Hgb 10.8 Hct 33.5 MCV 88.1 MCH 28.4 MCHC 32.2 RDW 14.4 Plt Count 319 MPV 8.3 Neutrophils % 65.3 D Lymphocytes % 24.3 D Monocytes % 8.9 Eosinophils % 0.8 D Basophils % 0.7 D Sodium 139 Potassium 3.6 Chloride 102 Carbon Dioxide 28 Anion Gap 9 BUN 7 Creatinine 0.8 Creat Clearance w eGFR > 60 Random Glucose 88 Calcium 7.9 L Magnesium 2.0 Total Bilirubin 0.4 AST 9 L ALT 15 Alkaline Phosphatase 47 Total Protein 6.4 Albumin 2.7 L Active Medications Generic Name Dose Route Start Last Admin Trade Name Freq PRN Reason Stop Dose Admin Acetaminophen 650 mg 04/29/17 23:57 Tylenol - PO Q4H PRN PAIN LEVEL 6-10 Acetaminophen 650 mg 05/01/17 09:06 Tylenol - PO 05/04/17 09:05 Q4H PRN Enoxaparin Sodium 40 mg 05/01/17 10:00 Lovenox - SQ DAILY DENISE Lactated Ringer's 1,000 mls @ 125 mls/hr 04/30/17 00:15 05/01/17 06:10 Lactated Ringers Solution IV 125 mls/hr ASDIR DENISE Administration Piperacillin/Tazobactam/Dextrose 50 mls @ 100 mls/hr 04/30/17 18:00 05/01/17 02:11 Zosyn 3.375gm Ivpb (Premix) IVPB 100 mls/hr Q8H-IV DENISE Administration Protocol Levothyroxine Sodium 125 mcg 04/30/17 07:00 05/01/17 06:10 Synthroid - PO 125 mcg DAILY@0700 DENISE Administration Ondansetron HCl 4 mg 04/29/17 23:47 Zofran Injection IVPUSH Q6H PRN NAUSEA AND/OR VOMITING Oxycodone HCl 10 mg 05/01/17 09:06 Roxicodone - PO Q4H PRN Microbiology 04/29/17 20:47 Abscess Wound Culture - Preliminary Group D Strep Or Entero Coccus 04/29/17 20:44 Abscess Gram Stain - Final 04/29/17 20:44 Abscess Body Fluid Culture - Preliminary Group D Strep Or Entero Coccus 04/28/17 12:00 Blood - Peripheral Venous Blood Culture - Preliminary NO GROWTH OBTAINED AFTER 72 HOURS, INCUBATION TO CONTINUE FOR 2 DAYS. 04/28/17 12:00 Blood - Peripheral Venous Blood Culture - Preliminary NO GROWTH OBTAINED AFTER 72 HOURS, INCUBATION TO CONTINUE FOR 2 DAYS. 04/28/17 12:00 Drainage Gram Stain - Final 04/28/17 12:00 Drainage Body Fluid Culture - Preliminary Enterococcus Faecalis Staphylococcus Epidermidis Pending Organism 04/28/17 12:00 Drainage Anaerobic Culture - Final NO ANAEROBES WERE ISOLATED 04/28/17 12:00 Body Fluid - Other Gram Stain - Final 04/28/17 12:00 Body Fluid - Other Body Fluid Culture - Preliminary Enterococcus Faecalis Staphylococcus Species Pending Organism 04/28/17 12:00 Body Fluid - Other Anaerobic Culture - Final NO ANAEROBES WERE ISOLATED 04/29/17 14:51 Abscess AFB Smear Concentration - Preliminary 04/29/17 14:51 Abscess Mycobacterial Culture - Preliminary 04/29/17 20:47 Abscess JOSÉ MIGUEL Preparation - Preliminary 04/29/17 20:47 Abscess Fungal Culture - Preliminary ASSESSMENT/PLAN: A: 52 year-old woman s/p abdominoplasty with liposuction 07/2016 complicated by loculations and drain placement 04/13/17 by IR. Further complicated with pain, fever, started on augmentin 04/23/17, followed by worsening pain, increased drainage, and bleeding. Now s/p abdominal wall exploration, washout, and removal of subq fibrous mass, POD #2. P: Abdominal infection - s/p washout - afebrile, WBC 12.4->14.7->15.4 - continue Zosyn (04/30- ) - start Linezolid per ID - oxycodone prn - ID following Hypothyroidism - continue Synthroid F/E/N - regular diet PPX - Lovenox - OOB - PT Dispo: continues to require inpatient care. Full code. Visit type - Emergency Visit Emergency Visit: Yes ED Registration Date: 04/28/17 Care time: The patient presented to the Emergency Department on the above date and was hospitalized for further evaluation of their emergent condition. - New Patient This patient is new to me today: Yes Date on this admission: 05/04/17 - Critical Care Critical Care patient: No
[2017-05-01] MEDS: ENOXAPARIN NA (PORCINE) 40 MG/0.4 ML DISP.SYRIN SQ SCH (11:26)
[2017-05-01] MEDS: oxyCODONE HCL 5 MG TABLET PO PRN ×2 (12:22→18:45)
[2017-05-01] MEDS: ACETAMINOPHEN 325 MG TABLET (FP) PO PRN ×2 (12:23→18:43)
--- NOTE | 2017-05-01 14:17 | PN ---
Progress Note, Physician History of Present Illness: POD #2 washout and drainage of abdominal wound No c/o pain No fever/ chills WBC elevatin noted Wound c/s mixed organisms, Enterococcus, SCN - Current Medication List Current Medications: Active Medications Acetaminophen (Tylenol -) 650 mg PO Q4H PRN PRN Reason: PAIN LEVEL 6-10 Last Admin: 05/01/17 12:23 Dose: 650 mg Acetaminophen (Tylenol -) 650 mg PO Q4H PRN Stop: 05/04/17 09:05 Enoxaparin Sodium (Lovenox -) 40 mg SQ DAILY [facility] Last Admin: 05/01/17 11:26 Dose: 40 mg Lactated Ringer's (Lactated Ringers Solution) 1,000 mls @ 125 mls/hr IV ASDIR [facility] Last Admin: 05/01/17 11:43 Dose: 125 mls/hr Piperacillin Sod/Tazobactam (Sod 3.375 gm/ Dextrose) 100 mls @ 200 mls/hr IVPB Q8H-IV DENISE PRN Reason: Protocol Levothyroxine Sodium (Synthroid -) 125 mcg PO DAILY@0700 [facility] Last Admin: 05/01/17 06:10 Dose: 125 mcg Ondansetron HCl (Zofran Injection) 4 mg IVPUSH Q6H PRN PRN Reason: NAUSEA AND/OR VOMITING Oxycodone HCl (Roxicodone -) 10 mg PO Q4H PRN Last Admin: 05/01/17 12:22 Dose: 10 mg - Objective Vital Signs: Vital Signs Temperature 98.2 F 05/01/17 08:00 Pulse Rate 96 H 05/01/17 08:00 Respiratory Rate 20 05/01/17 08:00 Blood Pressure 116/63 05/01/17 08:00 O2 Sat by Pulse Oximetry (%) 98 05/01/17 08:00 Constitutional: Yes: No Distress Cardiovascular: Yes: Regular Rate and Rhythm, S1, S2 Respiratory: Yes: CTA Bilaterally Gastrointestinal: Yes: Normal Bowel Sounds, Soft. No: Tenderness Edema: No Labs: CBC, BMP 05/01/17 06:30 05/01/17 06:30 INR, PTT INR 1.25 (0.82-1.09) H 04/28/17 12:00 Assessment/Plan POD #2 washout and drainage of abdominoplasty wound Wound c/s mixed organisms Enterococcus, SCN Leukocytosis Substitute zyvox 600mg q12 Repeat CBC am
[2017-05-01] MEDS: LINEZOLID 600 MG PREMIX BAG 600 MG/300 ML BAG IVPB SCH (15:40)
[2017-05-01] MEDS ORDERED: PIPERACILLIN/TAZOB 3.375 GM 3.375 GM in DEXTROSE 5%-WATER - 100 ML IVPB SCH (18:00)
[2017-05-02] MEDS: LINEZOLID 600 MG PREMIX BAG 600 MG/300 ML BAG IVPB SCH (02:22)
[2017-05-02] MEDS: ACETAMINOPHEN 325 MG TABLET (FP) PO PRN ×2 (02:24→10:04)
[2017-05-02] MEDS: oxyCODONE HCL 5 MG TABLET PO PRN (02:25)
[2017-05-02] MEDS: LACTATED RINGERS SOLUTION 1,000 ML IV SCH (06:28)
[2017-05-02] MEDS: LEVOTHYROXINE NA 125 MCG TABLET (FP) PO SCH (06:29)
[2017-05-02 07:55] LABS: BASO % 1.1 % (0-2.0); EOS % 2.6 % (0-4.5); HEMATOCRIT 32.6 % (32.4-45.2); HEMOGLOBIN 10.7 GM/dL (10.7-15.3); LYMPH % 28.8 % (8-40); MCH 29.2 pg (25.7-33.7); MEAN CELL VOLUME 88.4 fl (80-96); MEAN PLT VOLUME 7.9 fl (7.5-11.1); MONO % 11.3 % (3.8-10.2); NEUT % 56.2 % (42.8-82.8); PLATELET COUNT 297 K/MM3 (134-434); RBC 3.69 M/mm3 (3.60-5.2); RDW 14.7 % (11.6-15.6); WHITE BLOOD COUNT 9.6 K/mm3 (4.0-10.0)
[2017-05-02 08:07] LABS: CHLORIDE 102 mmol/L (98-107); POTASSIUM 3.9 mmol/L (3.5-5.1); SODIUM 140 mmol/L (136-145)
[2017-05-02 08:11] LABS: ANION GAP 6 (8-16); BLOOD UREA NITROGEN 5 mg/dL (7-18); CALCIUM 8.4 mg/dL (8.5-10.1); CO2 32 mmol/L (21-32); CREATININE 0.7 mg/dL (0.55-1.02); GLUCOSE,RANDOM 81 mg/dL (74-106)
[2017-05-02] MEDS: ENOXAPARIN NA (PORCINE) 40 MG/0.4 ML DISP.SYRIN SQ SCH (10:00)
--- NOTE | 2017-05-02 11:32 | PN ---
Progress Note, Physician History of Present Illness: POD #3 washout and drainage of abdominal wound No c/o pain No fever/ chills WBC now normal Wound c/s mixed organisms, Enterococcus, SCN, Acinetobacter - Current Medication List Current Medications: Active Medications Acetaminophen (Tylenol -) 650 mg PO Q4H PRN PRN Reason: PAIN LEVEL 6-10 Last Admin: 05/02/17 10:04 Dose: 650 mg Acetaminophen (Tylenol -) 650 mg PO Q4H PRN Stop: 05/04/17 09:05 Enoxaparin Sodium (Lovenox -) 40 mg SQ DAILY [facility] Last Admin: 05/02/17 10:00 Dose: 40 mg Lactated Ringer's (Lactated Ringers Solution) 1,000 mls @ 125 mls/hr IV ASDIR [facility] Last Admin: 05/02/17 06:28 Dose: 125 mls/hr Linezolid (Zyvox 600 Mg Premix Bag (Restricted To Id) -) 600 mg in 300 mls @ 300 mls/hr IVPB Q12H [facility] PRN Reason: Protocol Last Admin: 05/02/17 02:22 Dose: 300 mls/hr Levothyroxine Sodium (Synthroid -) 125 mcg PO DAILY@0700 [facility] Last Admin: 05/02/17 06:29 Dose: 125 mcg Ondansetron HCl (Zofran Injection) 4 mg IVPUSH Q6H PRN PRN Reason: NAUSEA AND/OR VOMITING Oxycodone HCl (Roxicodone -) 10 mg PO Q4H PRN Last Admin: 05/02/17 02:25 Dose: 10 mg - Objective Vital Signs: Vital Signs Temperature 97.8 F 05/02/17 05:00 Pulse Rate 84 05/02/17 05:00 Respiratory Rate 19 05/01/17 23:00 Blood Pressure 130/73 05/02/17 05:00 O2 Sat by Pulse Oximetry (%) 98 05/01/17 21:00 Constitutional: Yes: No Distress Eyes: Yes: Conjunctiva Clear Cardiovascular: Yes: Regular Rate and Rhythm, S1, S2 Respiratory: Yes: CTA Bilaterally Gastrointestinal: Yes: Normal Bowel Sounds, Soft, Other (abdominal wound no erythema. Serosanguinous fluid in NATASHA drains). No: Tenderness Edema: No Labs: CBC, BMP 05/02/17 06:00 05/02/17 06:00 INR, PTT INR 1.25 (0.82-1.09) H 04/28/17 12:00 Assessment/Plan POD #3 washout and drainage of abdominoplasty wound Wound c/s mixed organisms Enterococcus, SCN, Acinetobacter Leukocytosis- resolved Substitute Augmentin 875mg po bid x 10d Pt instructed to call me if she develops fever or erythema at surgical wound site
--- NOTE | 2017-05-02 11:35 | DS ---
Physical Exam: SUBJECTIVE: Patient seen and examined at the bedside. Feels well, denies abdominal pain. Wants to go home OBJECTIVE: Vital Signs Period Temp Pulse Resp BP Sys/Francisco Pulse Ox Last 24 Hr 97.8 F-98.7 F 70-97 16-19 119-130/68-84 98 PHYSICAL EXAM GENERAL: The patient is awake, alert, and fully oriented, in no acute distress. LUNGS: Breath sounds equal, clear to auscultation bilaterally, no wheezes, no crackles, no accessory muscle use. HEART: RRR, S1, S2. ABDOMEN: Long horizontal suprapubic incision closed with steri strips clean, dry , edges well-approximated, no erythema, no warmth; two NATASHA drains, scant amt of drainage EXTREMITIES: 2+ pulses, warm, well-perfused, no edema. NEUROLOGICAL: Normal speech, gait steady. LABS Laboratory Results - last 24 hr 05/02/17 05/02/17 06:00 06:00 WBC 9.6 D RBC 3.69 Hgb 10.7 Hct 32.6 MCV 88.4 MCH 29.2 MCHC 33.0 RDW 14.7 Plt Count 297 MPV 7.9 Neutrophils % 56.2 Lymphocytes % 28.8 Monocytes % 11.3 H Eosinophils % 2.6 D Basophils % 1.1 Sodium 140 Potassium 3.9 Chloride 102 Carbon Dioxide 32 Anion Gap 6 L BUN 5 L Creatinine 0.7 Random Glucose 81 Calcium 8.4 L HOSPITAL COURSE: Date of Admission:04/28/17 Date of Discharge: 05/02/17 Patient is a 52 year old woman s/p abdominoplasty with liposuction on 07/2016 complicated by loculations and drain placement 04/13/17 by IR. Further complicated with pain, fever. Patent was started on started on augmentin by her surgeon but had worsening pain, increased drainage, and bleeding. She is s/p abdominal wall exploration, washout, and removal of subq fibrous mass , POD #3. GI: Abdominal infection, resolving POD #3 washout and drainage of abdominoplasty wound afebrile, WBC stable On Zyvox IV BID as per ID, now to be discharged on Augmentin 875mg BID x 10 more days Oxycodone prn Surgery follow up outpatient ID following Dispo: Discharge home. Cleared by ID. Follow up with surgeon next week. Minutes to complete discharge: 60 Discharge Summary Reason For Visit: ABDOMINAL ABSCESS Current Active Problems Abdominal pain (Acute) Condition: Good - Instructions Diet, Activity, Other Instructions: Mrs. Wan: Please see your surgeon for follow up next week. As per your surgeon, you can have a regular diet. Please leave all dressings on and dry until follow up. Measure and log drain output, and call for fever or changes in color or thickness of drainage. New medications: Augmentin 875mg twice per day for 10 more days to continue. This has been called into your pharmacy. Oxycodone 5mg for pain has also been called in. Please take an over the counter stool softener twice daily (colace) to avoid constipation. Please call me with any questions you may have. [facility] Paola Smith [place] STATISTICAL TECHNICIAN [phone] Disposition: HOME - Home Medications Comprehensive Discharge Medication List: Ambulatory Orders Levothyroxine [Synthroid -] 125 mcg PO DAILY 07/03/16 Ergocalciferol (Vitamin D2) [Vitamin D2] 50,000 unit PO WEEKLY 04/13/17 Oxycodone HCl/Acetaminophen [Percocet 5-325 mg Tablet] 1 - 2 tab PO Q6H #20 tab MDD 6 05/01/17 Amox-Tr/K Cl [Augmentin - 875Mg Tablet] 1 tab PO BID #20 tablet 05/02/17 This patient is new to me today: Yes Date on this admission: 05/02/17 Emergency Visit: Yes ED Registration Date: 04/28/17 Care time: The patient presented to the Emergency Department on the above date and was hospitalized for further evaluation of their emergent condition. Critical Care patient: No - Discharge Referral Referred to [facility] No
[2017-05-02 12:33] VITALS: BP 135/81; PULSE 87; TEMP 97.9
[2017-05-02] MEDS ORDERED: AMOX TR/POT CLAV 875MG/125MG TABLETS (FP) PO SCH (17:30)
--- NOTE | 2017-05-06 14:46 | PATH ---
Surgical Pathology Report Patient Name: STACY MORENO [facility]. Rec. #: [id number] /Age/Gender: 1965 (Age: 52) / F Account: [id number] Location: [address] [place] [address]/[facility] Taken: 04/29/2017 Received: 04/30/2017 Reported: 05/06/2017 Physicians: Sharif Rodriguez Specimen(s) Received MASS OF ABDOMINAL WALL Clinical History Abdominal wall abscess Final Diagnosis ABDOMINAL WALL, MASS, EXCISION: DENSE FIBROUS AND ADIPOSE TISSUE WITH ACUTE AND CHRONIC NECROTIZING INFLAMMATION. Electronically Signed Yas Whitlock M.D. Gross Description Received in formalin labeled "abdominal wall mass," is 11.0 x 7.5 x 2.8 cm aggregate multiple walker-brown, irregular, unoriented portions of necrotic and focally hemorrhagic soft tissue. Software Clerk sections are submitted in one cassette. /04/30/201704/30/2017
== END 2017-05-02 13:09 | disposition home or self-care (01) | DRG 858 ==
LOC: FER 11:00 → FM/S 14:07 → JSAMEDAYSX 04-29 17:15 → J6S 04-30 00:55
PROVIDERS: ADMIT Internal Medicine; ATTEND Nurse Practitioner Family
PROC: 0HX7XZZ Transfer Abdomen Skin, External Approach (ICD-10-PCS; 2017-04-29)
PROC: 0JQ80ZZ Repair Abdomen Subcutaneous Tissue and Fascia, Open Approach (ICD-10-PCS; 2017-04-29)
PROC: 0WJF0ZZ Inspection of Abdominal Wall, Open Approach (ICD-10-PCS; 2017-04-29)
PROC: 0JB80ZZ Excision of Abdomen Subcutaneous Tissue and Fascia, Open Approach (ICD-10-PCS; principal; 2017-04-29 18:00)
DX: T81.4XXA Infection following a procedure, initial encounter (principal); E03.9 Hypothyroidism, unspecified; R19.09 Other intra-abdominal and pelvic swelling, mass and lump; Y83.8 Other surgical procedures as the cause of abnormal reaction of the patient, or of later complication, without mention of misadventure at the time of the procedure; B95.2 Enterococcus as the cause of diseases classified elsewhere
CPT/HCPCS: 36415; 74177-TC; 80048; 80053; 81003; 81015; 83605; 83690; 83735; 84703; 85025; 85610; 85651; 86140; 86850; 86900; 86901; 87040; 87070; 87075; 87102; 87116; 87186; 87205; 87206; 87210; 87804; 88304-TC; 93005; 94010; 94760; 97116-GP; 97161-GP; 99284-25